=== PATIENT | male | born 1945 | race Caucasian/White ===

== ENCOUNTER → 2016-11-14 | Outpatient (CLI) | payer OTHER ==
[~2016-11-14] MED LIST: AMLODIPINE BESYL5 MG PO; BACTRIM DS TAB1 EACH; BACTRIM DS TAB1 EACH PO; BREO ELLIPTA 21 EACH IH; BYSTOLIC 5 MG5 M1 PO; BYSTOLIC10 MG PO; COLACE100 MG PO; FLOMAX0.4 MG PO; HYDROCODON-ACE1 EAC8 PO; LISINOPRIL20 MG PO; LISINOPRIL40 MG PO; MAG-AL LIQUID30 ML PO; MIRALAX17 GM PO; NORCO 5-325 TA1 EACH PO; NORVASC10 MG PO; PRAVASTATIN SOD40 MG PO; TRAZODONE HCL50 MG PO; TRICOR145 MG PO; VITAMIN D1000 UNI1 PO; VITAMINC500 PO; ZOLOFT100 MG PO; ZOLOFT50 MG PO
== END ==
LOC: RAD 15:33
DX: R10.84 Generalized abdominal pain (principal); R10.9 Unspecified abdominal pain

== ENCOUNTER → 2016-11-16 | Outpatient (CLI) | payer OTHER | LOC: CAT 09:48 | DX: R06.02 Shortness of breath (principal); K76.89 Other specified diseases of liver; R91.8 Other nonspecific abnormal finding of lung field ==

== ENCOUNTER → 2017-05-16 | Outpatient (CLI) | payer OTHER | LOC: RAD 12:45 | DX: R06.00 Dyspnea, unspecified (principal); R06.02 Shortness of breath ==

== ENCOUNTER → 2017-06-15 | Outpatient (CLI) | payer OTHER | LOC: RAD 14:23 | DX: M19.041 Primary osteoarthritis, right hand (principal) ==

== ENCOUNTER 2018-11-11 16:53 | Emergency (ER) | payer OTHER ==
[~2018-11-11] VITALS: Ht 167.6 cm; Wt 83.9 kg
[2018-11-11 18:36] LABS: ABSOLUTE NEUTROPHILS 10.8 thou/uL (1.4-8.2); BASOPHILS 0.1 % (0.0-2.0); EOSINOPHILS 0.1 % (0.0-3.0); HEMATOCRIT 45.4 % (42.0-52.0); HEMOGLOBIN 14.9 gm/dL (14.0-18.0); LYMPHOCYTES 6.9 % (24.0-44.0); MCH 30.1 pg (26.0-34.0); MCHC 32.8 g/dL (28.0-37.0); MCV 91.8 fL (80.0-100.0); MONOCYTES 7.3 % (1.0-8.0); PLATELET COUNT 237 thou/uL (150-400); POLYS 85.6 % (36.0-66.0); RBC 4.94 mil/uL (4.50-6.00); RDW 14.3 % (10.5-14.5); WBC 12.6 thou/uL (4.0-11.0)
[2018-11-11 18:47] LABS: ANION GAP 5 mmol/L (7-16); BUN 18 mg/dL (7-18); CALCIUM 8.8 mg/dL (8.5-10.1); CHLORIDE 102 mmol/L (98-107); CO2 31 mmol/L (21-32); CREATININE 1.1 mg/dL (0.7-1.3); GLUCOSE 143 mg/dL (74-106); POTASSIUM 4.3 mmol/L (3.5-5.1); SODIUM 138 mmol/L (136-145)
[2018-11-11 18:57] LABS: ALBUMIN 3.7 g/dL (3.4-5.0); MAGNESIUM 2.1 mg/dL (1.8-2.4); SGOT 24 U/L (15-37); SGPT 20 U/L (30-65); TOTAL BILIRUBIN 0.4 mg/dL (<0.1-1.0); TOTAL PROTEIN 6.9 g/dL (6.4-8.2); TROPONIN-I <0.06 ng/mL (<0.06); URIC ACID* 5.1 mg/dL (2.6-7.2)
[2018-11-11] MEDS ORDERED: PROBIOTIC1 EAC1 PO (19:05)
[2018-11-11] MEDS ORDERED: NORCO 7.5-3251 EACH PO (19:05)
[2018-11-11] MEDS ORDERED: PREDNISONE 10 M10 MG PO (20:15)
[2018-11-11] MEDS ORDERED: COLCHICINE0.6 MG PO (20:15)
[2018-11-11 20:34] VITALS: BP 101/53
--- NOTE | 2018-11-11 21:05 | EKG ---
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: ANSELMOFrancois : 1945 Requested By: Melo Lopez Order Number: [id number] MD: Antoni Mcdermott Measurements Intervals [place] Rate: 62 P: 10 VT: 166 QRS: -40 QRSD: 138 T: 87 QT: 445 QTc: 452 Interpretive Statements Sinus rhythm Left bundle branch block Compared to ECG 01/16/2014 18:17:20 Left bundle-branch block now present Myocardial infarct finding no longer present Electronically Signed On 11-11-2018 21:05:00 RES COUNSELOR by Antoni Mcdermott [email or web address] <ELECTRONICALLY SIGNED> By: Antoni Mcdermott MD 11/11/185 50 50 Antoni Mcdermott MD /ERICA
== END 2018-11-11 20:36 | disposition home or self-care (01) ==
LOC: ER 16:53
PROVIDERS: Emergency Medicine
DX: M10.031 Idiopathic gout, right wrist (principal); R42 Dizziness and giddiness; R55 Syncope and collapse; F32.9 Major depressive disorder, single episode, unspecified; J45.909 Unspecified asthma, uncomplicated; I10 Essential (primary) hypertension; Z87.01 Personal history of pneumonia (recurrent); Z87.442 Personal history of urinary calculi; Z88.6 Allergy status to analgesic agent

== ENCOUNTER → 2019-04-09 | Outpatient (CLI) | payer OTHER ==
[~2019-04-09] VITALS: Ht 170.2 cm; Wt 86.2 kg
[~2019-04-09] MED LIST changes: +BREO ELLIPTA 21 EACH INH; +COLCHICINE0.6 MG PO; +LOPERAMIDE 2 MG2 M1 PO; +NORCO 7.5-3251 EACH PO; +OLMSRTN-AMLDPN1 EAC4 PO; +PREDNISONE 10 M10 MG PO; +PROAIR HFA8.5 GM INH; +PROBIOTIC1 EAC1 PO
--- NOTE | 2019-04-10 21:05 | PATH ---
[facility] [address] [address] PATHOLOGY RPT PROCEDURE Name: ORLIN GLEZ Room #: REG [facility] Shobha.#: [id number] ������������������ Admission: 04/09/19 ������������������ Date of : 47 Discharge: Report #: [id number] Path Case #: [id number] [facility] Accession Number: [id number] . 01 Material submitted: . colon - RANDOM COLON BIOPSY RULE OUT MICROSCOPIC COLITIS . 01 Clinical history: . Pre-OP DX: Diarrhea Post-OP DX: Diarrhea, diverticulosis Rule out microscopic colitis . 02 Diagnosis: Colon, random biopsies: - Multiple fragments of colonic mucosa with mild chronic inflammation. - No evidence of microscopic colitis. - No evidence of chronic inflammatory bowel disease. (SKM:pit 04/10/2019) QTP/04/10/2019 . 02 Electronically signed: . Pablo Oh MD, Pathologist NPI- [id number] . 01 Gross description: . Received in formalin labeled "Orlin Glez, random colon BX," are 6 segments of graves soft tissue measuring 1.7 x 1.4 x 0.3 cm in aggregate dimensions and ranging from 0.4 to 0.5 cm in maximum dimension. The specimen is submitted entirely in cassette A1. (TSD; 04/09/2019) TOB/TOB . 02 Microscopic: . . . 02 Pathologist provided ICD-10: K52.9 . 02 CPT . 383602 Specimen Comment: A courtesy copy of this report has been sent to Specimen Comment: [phone], . Specimen Comment: Report sent to / DR PATTERSON Performed at: [address] [id number] MD Kurt Edward MD Phone: [phone] [address] [address] PATHOLOGY RPT PROCEDURE Name: ORLIN GLEZ Room #: REG JOSÉ MIGUEL Wilson#: [id number] ������������������ Admission: 04/09/19 ������������������ Date of : 47 Discharge: Report #: [id number] Path Case #: [id number] Performed at: [address] [id number] MD Margaret Sheth MD Phone: [phone]
--- NOTE | 2019-04-16 09:11 | P ---
[facility] [address] PROCEDURE REPORT Name: ORLIN MCRAE Room #: REG [facility] Steve#: [id number] Admission: 04/09/19 ������������������ Attend Phys: Trenton Solano Discharge: ������������������ Date of : 47 Report #: [id number] THIS REPORT FOR: //name// CC: Jan Rojo DATE OF SERVICE: 04/09/2019 PROCEDURE PERFORMED: Flexible sigmoidoscopy with biopsies. HISTORY OF PRESENT ILLNESS: The patient is a 73-year-old male with approximately 1 year history of loose stools, diarrhea at times, average is 5-6 bowel movements per day. His stool studies last year were reportedly negative. He denies any blood in his stools. He has a previous history of rectal prolapse that was repaired by Dr. Manjit Hammond years ago. His weight has been stable. He has not been on any antibiotics recently. There are no new medications. No recent travel. He has been taking Imodium on a p.r.n. basis. No family history of colon cancer. Last colonoscopy was approximately 6 years ago. DESCRIPTION OF PROCEDURE: The risks and benefits of the procedure were explained to the patient, those risks including but not limited to bleeding and perforation. He understood these risks and gave informed consent. Sedation was given using propofol per anesthesia. Next, a digital rectal exam was initially performed, which was normal. Next, using a standard Olympus colonoscope, the scope was placed in the patient's anus and advanced into the ascending colon. The ileocecal valve was actually seen in the distance. The overall prep was excellent. The distal ascending colon, transverse and descending colon were all normal. No evidence of colitis or inflammation. Random biopsies were obtained to rule out microscopic colitis. A few scattered diverticula were noted in the sigmoid colon, otherwise normal. No evidence of inflammation. In the rectum, there were surgical changes consistent with previous prolapse repair. This was well healed and widely patent. No other abnormalities were noted. The scope was then withdrawn and the procedure terminated. The patient tolerated the procedure well. IMPRESSION: 1. Sigmoid diverticulosis, no inflammation. 2. Surgical changes from previous prolapse surgery noted in the rectum. RECOMMENDATIONS: 1. Await biopsy results. 2. Would continue Imodium on a p.r.n. basis at this time. The patient could take it daily if necessary, could consider a trial of Questran in the future. If biopsies are positive for microscopic colitis, we will discuss further medical options. [address] [address] PROCEDURE REPORT Name: ORLIN MCRAE Room #: REG CL Steve#: [id number] Admission: 04/09/19 ������������������ Attend Phys: Trenton Solano Discharge: ������������������ Date of : 47 Report #: [id number] Thank you for allowing me to participate in his care. ��������������������������������������������� <ELECTRONICALLY SIGNED> ���������������������������������������� By: Trenton Cotton MD ��������������������������������������������� 04/16/19 0911 1002 2222 Trenton Cotton MD /antonio
== END | disposition home or self-care (01) ==
LOC: GI 07:30
DX: K52.9 Noninfective gastroenteritis and colitis, unspecified (principal); K57.30 Diverticulosis of large intestine without perforation or abscess without bleeding; I10 Essential (primary) hypertension; E78.00 Pure hypercholesterolemia, unspecified; G47.33 Obstructive sleep apnea (adult) (pediatric); J45.909 Unspecified asthma, uncomplicated; M10.9 Gout, unspecified; Z87.442 Personal history of urinary calculi; Z85.828 Personal history of other malignant neoplasm of skin; Z79.899 Other long term (current) drug therapy; Z98.41 Cataract extraction status, right eye; Z98.42 Cataract extraction status, left eye; Z96.1 Presence of intraocular lens; Z87.01 Personal history of pneumonia (recurrent); Z79.82 Long term (current) use of aspirin
CPT/HCPCS: 62110; 62900

== ENCOUNTER → 2019-10-03 | Outpatient (CLI) | payer OTHER | LOC: MRI 09-30 13:08 | DX: M17.12 Unilateral primary osteoarthritis, left knee (principal) ==

== ENCOUNTER → 2020-01-01 | Outpatient (CLI) | payer OTHER | LOC: CAT 12-24 22:17 → LABMALL 10:25 → CAT 10:25 | DX: I70.219 Atherosclerosis of native arteries of extremities with intermittent claudication, unspecified extremity (principal); I05.9 Rheumatic mitral valve disease, unspecified; M47.816 Spondylosis without myelopathy or radiculopathy, lumbar region; M16.0 Bilateral primary osteoarthritis of hip; K76.89 Other specified diseases of liver; N28.1 Cyst of kidney, acquired; Z90.49 Acquired absence of other specified parts of digestive tract ==

== ENCOUNTER → 2020-04-02 | Outpatient (CLI) | payer OTHER | LOC: SJCVCIMAG 11:44 | PROVIDERS: ATTEND Internal Medicine Cardiovascular Disease | DX: I10 Essential (primary) hypertension (principal); E78.5 Hyperlipidemia, unspecified; J44.9 Chronic obstructive pulmonary disease, unspecified; Z88.6 Allergy status to analgesic agent; Z79.899 Other long term (current) drug therapy ==

== ENCOUNTER 2020-09-27 13:08 | Emergency (ER) | payer OTHER ==
[~2020-09-27] VITALS: Ht 167.6 cm; Wt 83.9 kg
[2020-09-27 15:41] LABS: ABSOLUTE NEUTROPHILS 6.4 thou/uL (1.4-8.2); BASOPHILS 0.8 % (0.0-2.0); EOSINOPHILS 0.8 % (0.0-3.0); HEMATOCRIT 44.1 % (42.0-52.0); LYMPHOCYTES 17.1 % (24.0-44.0); MCH 31.3 pg (26.0-34.0); MCHC 33.9 g/dL (28.0-37.0); MCV 92.3 fL (80.0-100.0); MONOCYTES 8.4 % (1.0-8.0); PLATELET COUNT 271 thou/uL (150-400); POLYS 72.9 % (36.0-66.0); RBC 4.78 mil/uL (4.50-6.00); RDW 13.6 % (10.5-14.5); WBC 8.8 thou/uL (4.0-11.0)
[2020-09-27 15:50] LABS: ANION GAP 5 mmol/L (7-16); BUN 21 mg/dL (7-18); CALCIUM 9.3 mg/dL (8.5-10.1); CHLORIDE 103 mmol/L (98-107); CO2 30 mmol/L (21-32); CREATININE 1.2 mg/dL (0.7-1.3); GLUCOSE 104 mg/dL (74-106); POTASSIUM 3.3 mmol/L (3.5-5.1); SODIUM 138 mmol/L (136-145)
[2020-09-27 16:02] LABS: ALBUMIN 3.6 g/dL (3.4-5.0); DIRECT BILIRUBIN 0.1 mg/dL (<0.1-0.2); LIPASE 196 U/L (73-393); SGOT 19 U/L (15-37); SGPT 18 U/L (30-65); TOTAL BILIRUBIN 0.7 mg/dL (0.2-1.0); TROPONIN-I <0.06 ng/mL (<0.06)
[2020-09-27 16:58] VITALS: BP 119/77
[2020-09-27 17:39] LABS: URINE BILIRUBIN NEGATIVE (Negative); URINE BLOOD NEGATIVE (Negative); URINE CLARITY CLEAR; URINE COLOR YELLOW; URINE GLUCOSE-RANDOM* NEGATIVE (Negative); URINE KETONES NEGATIVE (Negative); URINE LEUKOCYTES-REFLEX NEGATIVE (Negative); URINE NITRITE-REFLEX NEGATIVE (Negative); URINE PROTEIN (DIPSTICK) NEGATIVE (Negative); URINE SPECIFIC GRAVITY <= 1.005 (1.005-1.035); URINE UROBILINOGEN 0.2 E.U./dl (0.2-1.0)
--- NOTE | 2020-09-28 07:25 | EKG ---
[facility] [place] [address] ELECTROCARDIOGRAM REPORT Name: ORLIN MCRAE [facility] [id number] Admission: 09/27/20 Attend Phys: Discharge: 09/27/20 Date of : 47 Report #: [id number] THIS REPORT FOR: cc: Morales Rojo MD, Christopher B. 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: elizabeth weiss : 1945 Requested By: Edmundo Segovia Order Number: [id number] : Thiago Ny Measurements Intervals [place] Rate: 63 P: 37 MS: 171 QRS: -17 QRSD: 138 T: 88 QT: 452 QTc: 463 Interpretive Statements Sinus rhythm Atrial premature complex Left bundle branch block Baseline wander in lead(s) II,aVF Compared to ECG 11/11/2018 17:51:23 Atrial premature complex(es) now present Electronically Signed On 09-28-2020 7:25:08 RETAIL GROCER by Thiago Ny [email or web address] <ELECTRONICALLY SIGNED> By: Thiago Ny MD, FACC 09/28/20 0725 50 50 Thiago Ny MD, FACC /EPI
== END 2020-09-27 18:35 | disposition home or self-care (01) ==
LOC: ER 13:08
PROVIDERS: Nurse Practitioner
DX: R10.84 Generalized abdominal pain (principal); I10 Essential (primary) hypertension; J45.909 Unspecified asthma, uncomplicated; E78.5 Hyperlipidemia, unspecified; Z79.899 Other long term (current) drug therapy; Z88.6 Allergy status to analgesic agent

== ENCOUNTER → 2020-11-17 | Outpatient (CLI) | payer OTHER | LOC: LAB 09:04 | PROVIDERS: ATTEND Internal Medicine | DX: U07.1 COVID-19 (principal); R05 Cough ==

== ENCOUNTER 2020-12-31 10:56 | Emergency (ER) | payer OTHER ==
[~2020-12-31] VITALS: Ht 170.2 cm; Wt 78.6 kg
[2020-12-31 13:22] VITALS: BP 123/76
== END 2020-12-31 13:24 | disposition home or self-care (01) ==
LOC: ER 10:56
DX: S02.2XXA Fracture of nasal bones, initial encounter for closed fracture (principal); S01.81XA Laceration without foreign body of other part of head, initial encounter; I10 Essential (primary) hypertension; E78.5 Hyperlipidemia, unspecified; J45.909 Unspecified asthma, uncomplicated; Z87.891 Personal history of nicotine dependence; Z79.899 Other long term (current) drug therapy; Z88.6 Allergy status to analgesic agent; W10.8XXA Fall (on) (from) other stairs and steps, initial encounter; Y93.89 Activity, other specified; Y92.89 Other specified places as the place of occurrence of the external cause; Y99.8 Other external cause status

== ENCOUNTER → 2021-03-25 | Outpatient (CLI) | payer OTHER | LOC: RAD 11:16 | PROVIDERS: ATTEND Internal Medicine | DX: M19.031 Primary osteoarthritis, right wrist (principal); M25.731 Osteophyte, right wrist; M11.20 Other chondrocalcinosis, unspecified site ==

== ENCOUNTER → 2021-06-06 | Outpatient (CLI) | payer OTHER | LOC: RAD 13:09 | PROVIDERS: ATTEND Surgery | DX: M77.31 Calcaneal spur, right foot (principal) ==

== ENCOUNTER → 2021-06-23 | Outpatient (CLI) | payer OTHER | LOC: SJCVCIMAG 09:07 | PROVIDERS: ATTEND Nuclear Medicine Nuclear Cardiology | DX: I73.9 Peripheral vascular disease, unspecified (principal); J98.4 Other disorders of lung; I10 Essential (primary) hypertension; E78.00 Pure hypercholesterolemia, unspecified; Z86.16 Personal history of COVID-19; G47.33 Obstructive sleep apnea (adult) (pediatric); Z79.899 Other long term (current) drug therapy ==